=== PATIENT | male | born 1980 | race Two or more races ===

== ENCOUNTER 2017-04-11 19:36 | Emergency (ER) | payer OTHER ==
[2017-04-11 20:00] VITALS: BP 175/121; PULSE 88; RESP 16; TEMP 97.7; O2SAT 95
--- NOTE | 2017-04-11 20:05 | EDPHY ---
H & P Time Seen by Provider: 04/11/17 20:04 HPI/ROS: Chief complaint. Back pain HPI. 36-year-old male presents to emergency department with low back pain that started yesterday. He was at work and was squatting to roll up a hose and then when he stood up his right lower back "seized up". He has pain in the right lower back and it hurts to move and bend over. No left-sided pain. No radiation to his leg. No leg weakness or change in sensation. No bowel or bladder symptoms. No history of low back pain in this area though has had pulled muscles in other areas of his back. I noted that the patient has an elevated blood pressure and he tells me has a history of hypertension but does not take medication for this. ROS Constitutional. no fever/chills, no weakness Eyes. no problems with vision ENT. no sore throat, no nasal drainage Cardiovascular. no chest pain Respiratory. no shortness of breath, no cough Abdominal. no abdominal pain, no nausea/vomiting, no diarrhea . no problems urinating MS. Low back pain Skin. no rash Lymph. no swollen glands Neuro. no headache, no dizziness, no difficulty walking or with speech Past Medical/Surgical History: Orthopedic injuries, hypertension Social History: Single, nonsmoker, no alcohol Smoking Status: Former smoker Physical Exam: General Appearance: Alert well-developed male mild distress vital signs significant for blood pressure 175/121 Eyes: Pupils equal and round no pallor or injection. ENT, Mouth: Mucous membranes are moist. Respiratory: There are no retractions, lungs are clear to auscultation. Cardiovascular: Regular rate and rhythm. Gastrointestinal: Abdomen is soft and nontender, no masses, bowel sounds normal. Neurological: Awake and alert, sensory and motor exams grossly normal. Straight leg raising positive at 30 degrees on the right. Negative on the left. Deep tendon reflexes are symmetrical. Great toe strength is normal. Sensation is normal by Skin: Warm and dry, no rashes. Musculoskeletal: Neck is supple nontender. Tenderness in the right paralumbar muscles. No spine tenderness. Extremities symmetrical, full range of motion. Psychiatric: Patient is oriented X 3, there is no agitation. Constitutional: Initial Vital Signs Temperature (C) 36.5 C 04/11/17 19:55 Heart Rate 88 04/11/17 19:55 Respiratory Rate 16 04/11/17 19:55 Blood Pressure 175/121 H 04/11/17 19:55 O2 Sat (%) 95 04/11/17 19:55 O2 Delivery Mode Room Air Allergies/Adverse Reactions: No Known Allergies Allergy (Verified 09/25/12 08:01) Home Medications: Medication Instructions Recorded CYCLOBENZAPRINE HCL [Flexeril] 5 mg PO TIDPRN PRN #10 tab 04/11/17 Multi-Day Vitamins 04/11/17 Medical Decision Making ED Course/Re-evaluation: Patient and I discussed treatment plan including criteria for return importance of follow-up and further evaluation. He is encouraged to see his physician to begin treatment with anti hypertension medication Differential Diagnosis: I think this is muscular low back pain. I considered herniated disc, cauda equina syndrome. Departure - Departure Disposition: Home, Routine, Self-Care Clinical Impression: Low back pain Qualifiers: Chronicity: acute Back pain laterality: right Sciatica presence: without sciatica Qualified Code(s): M54.5 - Low back pain Condition: Good Instructions: Low Back Strain (ED) Additional Instructions: Ibuprofen 600 mg every 6 hours for discomfort. Flexeril as muscle relaxer. Hydrocodone 1 pill every 4-6 hours tonight. Return for bowel or bladder symptoms, leg weakness. Recheck with workman's Comp in 2-3 days without fail before returning to work. Your blood pressure is elevated tonight and I would ask you to see your physician to start on blood pressure medication within the next week Referrals: Work Comp Referral [facility] [Outside] - As per Instructions Nya Alegria DO [Doctor of Osteopathy] - 5-7 days, call for appt. Stand Alone Forms: Work Excuse Prescriptions: CYCLOBENZAPRINE HCL [Flexeril] 5 mg PO TIDPRN PRN #10 tab PRN Reason: Spasms
[2017-04-11] MEDS ORDERED: HYDROCOD/APAP 5/325 PREPACK#6 BTL TAKEHOME ONE (20:15)
[2017-04-11] MEDS ORDERED: CYCLOBENZAPRINE 10MG PREPACK#3 BTL TAKEHOME ONE (20:16)
== END 2017-04-11 20:35 | disposition home or self-care (01) ==
LOC: CED 19:36
DX: M54.5 Low back pain (principal); I10 Essential (primary) hypertension; Z87.891 Personal history of nicotine dependence; Y99.0 Civilian activity done for income or pay

== ENCOUNTER 2018-12-14 10:36 | Emergency (ER) | payer SELFPAY | END 2018-12-14 10:40 | disposition left against medical advice (07) | LOC: CED 10:36 | DX: Z53.21 Procedure and treatment not carried out due to patient leaving prior to being seen by health care provider (principal) ==